=== PATIENT | male | born 1950 | race Two or more races ===

== ENCOUNTER 2022-07-06 15:42 | Observation (INO) | payer OTHER ==
[2022-07-06 16:22] VITALS: BMI 23.3
[2022-07-06] MEDS ORDERED: LACTATED RINGERS SOLUTION 1,000 ML/1,000 ML INFUS.BAG IV SCH (18:00)
[2022-07-06 19:45] LABS: BASO % 0.7 % (0-2.0); EOS % 1.1 % (0-4.5); HEMATOCRIT 37.2 % (35.4-49); HEMOGLOBIN 12.7 GM/dL (11.7-16.9); LYMPH % 8.4 % (8-40); MCH 32.4 pg (25.7-33.7); MEAN CELL VOLUME 95.4 fl (80-96); MEAN PLT VOLUME 8.9 fl (7.5-11.1); MONO % 8.8 % (3.8-10.2); PLATELET COUNT 218 10^3/uL (134-434); RDW 13.4 % (11.9-15.9); WHITE BLOOD COUNT 9.7 K/mm3 (4.0-10.0)
[2022-07-06 19:57] LABS: INR 1.13 (0.83-1.09)
[2022-07-06 20:00] LABS: ACTIVATED PTT 30.4 SECONDS (25.2-36.5)
[2022-07-06 20:01] LABS: CALCIUM 8.8 mg/dL (8.5-10.1)
[2022-07-06 20:02] LABS: ALBUMIN 3.7 g/dl (3.4-5.0); BLOOD UREA NITROGEN 16.4 mg/dL (7-18)
[2022-07-06 20:05] LABS: CREATININE 1.2 mg/dL (0.55-1.3)
[2022-07-06 20:07] LABS: BILIRUBIN,TOTAL 0.4 mg/dL (0.2-1); TOT PROT 7.2 g/dl (6.4-8.2)
[2022-07-07 03:18] VITALS: RESP 20; TEMP 98.9
[2022-07-07] MEDS ORDERED: MELATONIN 5 MG TABLETS ONE (03:49)
[2022-07-07] MEDS ORDERED: MELATONIN 5 MG TABLETS PO ONE (03:52)
[2022-07-07] MEDS ORDERED: HALOPERIDOL LACTATE 5 MG/ML IM ONE ×2 (05:04)
[2022-07-07 07:45] LABS: BASO % 0.7 % (0-2.0); EOS % 1.1 % (0-4.5); HEMATOCRIT 35.6 % (35.4-49); HEMOGLOBIN 12.4 GM/dL (11.7-16.9); LYMPH % 19.6 % (8-40); MCHC 34.9 g/dl (32.0-35.9); MEAN CELL VOLUME 94.6 fl (80-96); MEAN PLT VOLUME 8.8 fl (7.5-11.1); MONO % 10.9 % (3.8-10.2); NEUT % 67.7 % (42.8-82.8); PLATELET COUNT 219 10^3/uL (134-434); RBC 3.76 M/mm3 (4.00-5.60); RDW 13.3 % (11.9-15.9); WHITE BLOOD COUNT 8.1 K/mm3 (4.0-10.0)
[2022-07-07 07:58] LABS: CALCIUM 8.8 mg/dL (8.5-10.1); MAGNESIUM 1.4 mg/dL (1.8-2.4)
[2022-07-07 07:59] LABS: ALBUMIN 3.8 g/dl (3.4-5.0)
[2022-07-07 08:01] LABS: PHOSPHOROUS 2.7 mg/dL (2.5-4.9)
[2022-07-07 08:03] LABS: BILIRUBIN,TOTAL 0.4 mg/dL (0.2-1); TOT PROT 7.3 g/dl (6.4-8.2)
[2022-07-07] MEDS: HEPARIN NA (PORCINE) 5,000 UNITS/ML 1ML VIAL SQ SCH ×2 (09:42→13:59)
[2022-07-07] MEDS: INSULIN SLIDING SCALE (NOVOLOG) 1 VIAL SQ SCH ×2 (09:42→13:59)
[2022-07-07] MEDS ORDERED: HEPARIN NA (PORCINE) 5,000 UNITS/ML 1ML VIAL ONE (09:44)
[2022-07-07] MEDS ORDERED: MAGNESIUM 1GM/D5W - 1 GM/100 ML IVPB IVPB ONE (10:55)
[2022-07-07] MEDS ORDERED: LISINOPRIL 5 MG TABLET PO SCH (12:45)
[2022-07-07] MEDS ORDERED: MAGNESIUM OXIDE 400 MG TABLET (FP) PO ONE (13:44)
[2022-07-07] MEDS ORDERED: MAGNESIUM OXIDE 400 MG TABLET (FP) ONE (13:50)
[2022-07-07] MEDS ORDERED: LISINOPRIL 5 MG TABLET ONE (13:50)
[2022-07-07 14:03] VITALS: BP 140/68; PULSE 81
[2022-07-08] MEDS ORDERED: ASPIRIN 81 MG CHEWABLE TABLETS PO SCH (10:00)
== END 2022-07-07 15:55 | disposition home or self-care (01) ==
LOC: JER 15:42 → JERBED 19:15 → UNDOADMOB 19:15 → OBSVTOIN 07-07 05:04 → INTOOBSV 07-07 05:04 → JERBED 07-07 12:19
PROVIDERS: ADMIT Internal Medicine; ATTEND Internal Medicine
PROC: 3E023GC Introduction of Other Therapeutic Substance into Muscle, Percutaneous Approach (ICD-10-PCS; principal; 2022-07-07)
PROC: 3E0337Z Introduction of Electrolytic and Water Balance Substance into Peripheral Vein, Percutaneous Approach (ICD-10-PCS; 2022-07-07)
DX: R55 Syncope and collapse (principal); I10 Essential (primary) hypertension; E11.9 Type 2 diabetes mellitus without complications; R42 Dizziness and giddiness; N40.0 Benign prostatic hyperplasia without lower urinary tract symptoms
CPT/HCPCS: 0241U-QW; 36415; 70450-TC; 80053; 82962; 83735; 84100; 84443; 84484; 85025; 85610; 85730; 93005; 93010; 93880-TC; 96360; 96372; 99285-25; G0378; J1644